=== PATIENT | female | born 1985 | race American Indian/Alaskan Native ===

== ENCOUNTER 2019-12-07 10:58 | Outpatient (CLI) | payer MEDICAID ==
[2019-12-07 11:47] VITALS: BP 116/59
[2019-12-07] MEDS ORDERED: LACTATED RINGERS 500 ML IV ONE (12:01)
[2019-12-07 13:04] LABS: Color,Urine Yellow (Yellow)
[2019-12-07 13:05] LABS: Bilirubin,Urine NEG (Negative); Blood,Urine NEG (Negative); Mucus,Urine 1+ /HPF; Protein,Urine <15 mg/dL mg/dL (Negative); Urobilinogen,Urine < 2.0 mg/dL (<2.0)
[2019-12-07 13:21] LABS: WBC,Urine < 1.0 /HPF (0.0-6.0)
[2019-12-07] MEDS ORDERED: LACTATED RINGERS 1,000 ML IV SCH (14:00)
== END 2019-12-07 16:16 | disposition home or self-care (01) ==
LOC: TRG 10:58 → APU 11:02 → TRG 16:16
PROVIDERS: ATTEND Obstetrics & Gynecology
DX: O26.893 Other specified pregnancy related conditions, third trimester (principal); M54.9 Dorsalgia, unspecified; R35.0 Frequency of micturition; R25.2 Cramp and spasm; O13.3 Gestational [pregnancy-induced] hypertension without significant proteinuria, third trimester; Z3A.28 28 weeks gestation of pregnancy
CPT/HCPCS: 59025; 81001; 96365; 96366; J0690; J7120; 96360